=== PATIENT | male | born 1940 | race African-American/Black ===

== ENCOUNTER 2024-03-25 11:37 | Emergency (ER) | payer OTHER, MEDICARE ==
[2024-03-25 11:56] VITALS: BP 131/87; PULSE 80; RESP 18; TEMP 97.4; BMI 16.7
[2024-03-25 12:58] LABS: EOS % 0.7 % (0-4.5); HEMATOCRIT 49.5 % (35.4-49); HEMOGLOBIN 16.5 GM/dL (11.7-16.9); LYMPH % 17.6 % (8-40); MCH 32.5 pg (25.7-33.7); MCHC 33.3 g/dl (32.0-35.9); MEAN CELL VOLUME 97.5 fl (80-96); MEAN PLT VOLUME 9.3 fl (7.5-11.1); MONO % 11.2 % (3.8-10.2); NEUT % 69.5 % (42.8-82.8); PLATELET COUNT 114 10^3/uL (134-434); RBC 5.08 M/mm3 (4.00-5.60); RDW 14.7 % (11.9-15.9)
[2024-03-25 12:59] LABS: WHITE BLOOD COUNT 5.4 K/mm3 (4.0-10.0)
[2024-03-25 13:04] LABS: INR 1.51 (0.83-1.09); PROTHROMBIN TIME (PATIENT) 17.2 SEC (9.7-13.0)
[2024-03-25 13:22] LABS: POTASSIUM 5.4 mmol/L (3.5-5.1)
[2024-03-25 13:25] LABS: ALBUMIN 3.8 g/dl (3.4-5.0); BLOOD UREA NITROGEN 41.8 mg/dL (7-18); CALCIUM 9.4 mg/dL (8.5-10.1)
[2024-03-25 13:28] LABS: CREATININE 1.7 mg/dL (0.55-1.3)
[2024-03-25 13:29] LABS: BILIRUBIN,TOTAL 0.9 mg/dL (0.2-1)
[2024-03-25] MEDS: SODIUM CHLORIDE 500 ML IV STA (16:12)
== END 2024-03-25 20:32 | disposition home or self-care (01) ==
LOC: JER 11:37
PROC: 3E0337Z Introduction of Electrolytic and Water Balance Substance into Peripheral Vein, Percutaneous Approach (ICD-10-PCS; principal; 2024-03-25)
DX: R91.8 Other nonspecific abnormal finding of lung field (principal); K56.7 Ileus, unspecified; N17.9 Acute kidney failure, unspecified
CPT/HCPCS: 36415; 74176-TC; 80053; 85025; 85610; 86850; 86900; 86901; 99284-25